=== PATIENT | female | born 1985 | race African-American/Black ===

== ENCOUNTER 2017-05-05 01:16 | Emergency (ER) | payer OTHER, MEDICAID ==
[~2017-05-05] VITALS: Ht 157.5 cm; Wt 73.0 kg
[2017-05-05 01:17] VITALS: BP 101/49
== END 2017-05-05 03:15 | disposition left against medical advice (07) ==
LOC: ER 01:16
DX: R22.0 Localized swelling, mass and lump, head (principal); Z53.21 Procedure and treatment not carried out due to patient leaving prior to being seen by health care provider